=== PATIENT | male | born 1960 | race Caucasian/White ===

== ENCOUNTER 2024-01-19 02:33 | Emergency (ER) | payer MEDICARE, OTHER ==
[~2024-01-19] VITALS: Ht 175.3 cm; Wt 99.8 kg
[2024-01-19] MEDS ORDERED: predniSONE 20 MG TABLET ONE (03:02)
[2024-01-19] MEDS: predniSONE 20 MG TABLET PO ONE (03:03)
[2024-01-19] MEDS: IPRATROPIUM NEB FS 0.5 MG/2.5 ML AMPUL.NEB NEB ONE (03:36)
[2024-01-19] MEDS: ALBUTEROL FS 2.5 MG/3 ML VIAL.NEB NEB ONE (03:36)
[2024-01-19 03:37] VITALS: O2SAT 97
[2024-01-19] MEDS ORDERED: ALBUTEROL FS 2.5 MG/3 ML VIAL.NEB ONE (03:38)
[2024-01-19] MEDS ORDERED: IPRATROPIUM NEB FS 0.5 MG/2.5 ML AMPUL.NEB ONE (03:38)
[2024-01-19 03:47] VITALS: O2SAT 99
[2024-01-19] MEDS ORDERED: ALBU18HF2 INH (04:25)
[2024-01-19] MEDS ORDERED: PRED50TA PO (04:25)
[2024-01-19] MEDS ORDERED: AZIT250T13 PO (07:42)
[2024-01-19] MEDS ORDERED: AMOX-430 PO (07:42)
[2024-01-19 07:51] VITALS: BP 154/82; TEMP 97.9; O2SAT 98
== END 2024-01-19 07:52 | disposition home or self-care (01) ==
LOC: ER 02:44
DX: J45.901 Unspecified asthma with (acute) exacerbation (principal)
CPT/HCPCS: 99285; 71250; 71045; 94640 ×2; J7512